=== PATIENT | male | born 1945 | race Caucasian/White ===

== ENCOUNTER 2017-08-20 15:36 | Inpatient (IN) | payer OTHER ==
[~2017-08-20] VITALS: Ht 171.4 cm; Wt 96.3 kg
[~2017-08-20 15:36] MED LIST: ASPIR 8181 MG PO; ATIVAN1 MG PO; AZELASTINE137 MCG/0. INH; CENTRUM SILVER1 EAC3 PO; CITALOPRAM HBR10 MG PO; COZAAR100 MG PO; DICYCLOMINE HCL20 MG PO; FLOMAX0.4 MG PO; KURIC75 GM; LIPITOR20 MG PO; NASACORT AQ16.5 GM INH; OMEPRAZOLE40 MG PO; PROBIOTIC & AC1 EACH PO; TERBINAFINE HC250 MG PO; VALIUM5 MG PO; VENLAFAXINE HCL75 MG PO; [UNRECOGNIZED DRUG - REMARK]
[2017-08-20] MEDS ORDERED: IOPAMIDOL 370 MG/ML 200 ML INFUS..BTL INJ ONE ×2 (16:14→19:54)
[2017-08-20] MEDS ORDERED: SODIUM CHLORIDE 0.9% 50ML 50 ML ONE ×2 (16:14→19:54)
[2017-08-20] MEDS ORDERED: DIATRIZOATE MEGL/DIATRIZOA SOD 30 ML BTL PO ONE (16:14)
[2017-08-20 16:55] LABS: BASOPHILS % 0.1 % (0.0-1.0); HEMATOCRIT 43.9 % (38.2-49.6); HEMOGLOBIN 14.4 g/dL (14.0-18.0); LYMPHOCYTES # (AUTO) 8.3 (1.0-3.2); LYMPHOCYTES % 36.8 % (18.0-39.1); MEAN CORPUSCULAR HGB CONC 32.8 g/dL (31-35); MEAN CORPUSCULAR VOLUME 94.6 fL (81-99); MONOCYTES # (AUTO) 0.7 (0.2-0.8); MONOCYTES % 3.2 % (4.4-11.3); NEUTROPHILS # (AUTO) 13.5 (2.1-6.9); NEUTROPHILS % 59.5 % (38.7-80.0); PLATELET COUNT 319 x10e3/uL (140-360); RED BLOOD COUNT 4.64 x10e6/uL (4.3-5.7); RED CELL DISTRIBUTION WIDTH 13.7 % (11.7-14.4)
[2017-08-20] MEDS ORDERED: MORPHINE SULFATE 2 MG/ML SYR IV STA (16:59)
[2017-08-20] MEDS ORDERED: ONDANSETRON HCL INJ 2 MG/ML VIAL IV STA ×2 (16:59→18:11)
[2017-08-20 17:00] LABS: BILIRUBIN,URINE 1+ (NEGATIVE); CLARITY,URINE SL CLOUDY (CLEAR); COLOR,URINE YELLOW (YELLOW); KETONES,URINE NEGATIVE (NEGATIVE); LEUKOCYTE ESTERASE ,URINE NEGATIVE (NEGATIVE); NITRITE,URINE NEGATIVE (NEGATIVE); PROTEIN,URINE DIPSTICK 1+ (NEGATIVE); URINE UROBILINOGEN 0.2 mg/dL (0.2 - 1)
[2017-08-20 17:09] LABS: EPITHELIAL CELLS,URINE MODERATE /LPF; RBC,URINE 0-5 /HPF (0-5)
[2017-08-20 17:15] LABS: ALANINE AMINOTRANSFERASE 25 IU/L (0-55); ALBUMIN 4.2 g/dL (3.5-5.0); ALBUMIN/GLOBULIN RATIO 1.1 (0.8-2.0); ALKALINE PHOSPHATASE 61 IU/L (40-150); ANION GAP 17.7 mmol/L (8-16); BLOOD UREA NITROGEN 14 mg/dL (7-26); BUN/CREATININE RATIO 16 (6-25); CALCIUM 10.2 mg/dL (8.4-10.2); CARBON DIOXIDE 30 mmol/L (22-29); CHLORIDE 91 mmol/L (98-107); CREATINE KINASE 72 IU/L (30-200); CREATININE, SERUM 0.85 mg/dL (0.72-1.25); EST GLOMERULAR FILTRATION RATE > 60 ML/MIN (60-); GLUCOSE 139 mg/dL (74-118); LIPASE 6 U/L (8-78); POTASSIUM 4.7 mmol/L (3.5-5.1); SODIUM 134 mmol/L (136-145)
[2017-08-20 17:44] LABS: LYMPHOCYTES % (MANUAL) 24 % (19-48); METAMYELOCYTES % (MANUAL) 3 % (0-0); MONOCYTES % (MANUAL) 5 % (3.4-9.0); NEUTROPHILS % (MANUAL) 53 % (40-74); PLATELET ESTIMATE ADEQUATE; PLATELET MORPHOLOGY COMMENT NORMAL; RBC MORPHOLOGY COMMENT NORMAL
[2017-08-20] MEDS ORDERED: HYDROMORPHONE 1MG/1ML INJ IV STA (18:11)
--- NOTE | 2017-08-20 18:29 | Diagnostic Imaging Report ---
PROCEDURE: CT ABDOMEN AND PELVIS WITH CONTRAST TECHNIQUE: The abdomen and pelvis were scanned utilizing a multidetector helical scanner from the diaphragm to the lesser trochanter after the IV administration of 100 cc of Isovue 370 and the oral administration of dilute Gastrografin. Coronal and sagittal multiplanar reformations were obtained. COMPARISON: Patients [facility], CT, CT ABDOMEN AND PELVIS WITH CONTRAST, 02/28/2010, 20:58. INDICATIONS: OBSTRUCTION FINDINGS: LOWER THORAX: Stable 2 mm nodule in the posteromedial left lower lobe (series 2, image 15). Bibasal dependent atelectasis. Subsegmental atelectasis in the lingula. HEPATOBILIARY: No focal hepatic lesions. No biliary ductal dilatation. Gallbladder is unremarkable. SPLEEN: No splenomegaly. PANCREAS: No focal masses or ductal dilatation. ADRENALS: No adrenal nodules. KIDNEYS/URETERS: Subcentimeter hypodensities in the left kidney (series 2, image 50 and 52) which are too small to characterize, but likely represent small cysts. No stones or hydronephrosis. No solid enhancing masses. PELVIC ORGANS/BLADDER: Bladder and prostate are unremarkable. PERITONEUM / RETROPERITONEUM: Trace free fluid in the posterior pelvis (series 2, image 96). LYMPH NODES: No lymphadenopathy. VESSELS: Celiac trunk, superior and inferior mesenteric, and bilateral renal arteries are patent. Portal, superior mesenteric, and splenic veins are patent. GI TRACT: Multiple air and fluid-filled, dilated loops of mid and distal jejunum and proximal and mid ileum (series 2 image 57), with a maximal measurement of approximately 4.4 cm. A transition point is identified in the anterior right mid abdominal peritoneum (series 2, image 43 and coronal image 31), with decompressed distal ileum. There is a fecalization of small bowel loops prior to the transition point (series 2, image 57). No intraluminal masses. The large bowel shows normal caliber. Sigmoid diverticulosis, without diverticulitis. BONES AND SOFT TISSUES: No aggressive lytic lesion. Mild degenerative disc changes in the lower thoracic and lumbosacral spines. Stable small bilateral fat containing inguinal hernias. Soft tissues are otherwise unremarkable. IMPRESSION: 1. Findings consistent with small bowel obstruction, with transition point in the mid to distal ileum. No obstructing mass. Etiology is likely secondary to adhesions. Calin Amador M.D. Dictated by: Calin Amador M.D. on 08/20/2017 at 18:30 Electronically approved by: Calin Amador M.D. on 08/20/2017 at 18:30
[2017-08-20] MEDS ORDERED: ONDANSETRON HCL INJ 2 MG/ML VIAL IV PRN (19:00)
[2017-08-20] MEDS ORDERED: SODIUM CHLORIDE 0.9% 1000ML 1,000 ML ONE (19:10)
[2017-08-20] MEDS ORDERED: BENZOCAINE/TETRACAINE/BUTAMBEN AERO SPRAY 56 GM CAN TOP ONE (19:15)
[2017-08-20] MEDS ORDERED: SODIUM CHLORIDE 0.9% 1000ML 1,000 ML IV ONE (19:15)
[2017-08-20] MEDS ORDERED: METRONIDAZOLE 500MG/NS 100ML 100 ML IV SCH (19:30)
[2017-08-20] MEDS: SODIUM CHLORIDE 0.9% 250ML IRRIG IR SCH ×2 (19:39→23:08)
--- OUTSIDE RECORDS SUMMARY | 2017-08-20 19:42 | XMS REPORT ---
Author Author [facility] Address Unknown Phone Unavailable Care Team Providers Care Hay Chopper Name Role Phone MANE DAVIS Unavailable Unavailable Problems This patient has no known problems. Allergies, Adverse Reactions, Alerts This patient has no known allergies or adverse reactions. Medications This patient has no known medications. Results Test Description Test Time Test Comments Text Results Atomic Results Result Comments CT ABDOMEN/PELVIS W [place] [address] Patient Name: CAROLYNE MARINELLI MR #: [id number] : 1945 Age/Sex: 71/M Req #: [id number] Adm Physician: Ordered by: MANE DAVIS MD Report #: [id number] Location: ER Room/Bed: Procedure: [id number] CT/CT ABDOMEN/PELVIS W Exam Date: 08/20/17 Exam Time: 1745 REPORT STATUS: Signed PROCEDURE: CT ABDOMEN AND PELVIS WITH CONTRAST TECHNIQUE: The abdomen and pelvis were scanned utilizing a multidetector helical scanner from the diaphragm to the lesser trochanter after the IV administration of 100 cc of Isovue 370 and the oral administration of dilute Gastrografin. Coronal and sagittal multiplanar reformations were obtained. COMPARISON: [facility], CT, CT ABDOMEN AND PELVIS WITH CONTRAST, 02/28/2010, 20:58. INDICATIONS: OBSTRUCTION FINDINGS: LOWER THORAX: Stable 2 mm nodule in the posteromedial left lower lobe (series 2, image 15). Bibasal dependent atelectasis. Subsegmental atelectasis in the lingula. HEPATOBILIARY: No focal hepatic lesions. No biliary ductal dilatation. Gallbladder is unremarkable. SPLEEN: No splenomegaly. PANCREAS: No focal masses or ductal dilatation. ADRENALS: No adrenal nodules. KIDNEYS/URETERS: Subcentimeter hypodensities in the left kidney (series 2, image 50 and 52) which are too small to characterize, but likely represent small cysts. No stones or hydronephrosis. No solid enhancing masses. PELVIC ORGANS/BLADDER : Bladder and prostate are unremarkable. PERITONEUM / RETROPERITONEUM: Trace free fluid in the posterior pelvis (series 2, image 96). LYMPH NODES : No lymphadenopathy. VESSELS: Celiac trunk, superior and inferior mesenteric , and bilateral renal arteries are patent. Portal, superior mesenteric, and splenic veins are patent. GI TRACT: Multiple air and fluid-filled, dilated loops of mid and distal jejunum and proximal and mid ileum (series 2 image 57), with a maximal measurement of approximately 4.4 cm. A transition point is identified in the anterior right mid abdominal peritoneum (series 2, image 43 and coronal image 31), with decompressed distal ileum. There is a fecalization of small bowel loops prior to the transition point (series 2, image 57). No intraluminal masses. The large bowel shows normal caliber. Sigmoid diverticulosis, without diverticulitis. BONES AND SOFT TISSUES: No aggressive lytic lesion. Mild degenerative disc changes in the lower thoracic and lumbosacral spines. Stable small bilateral fat containing inguinal hernias. Soft tissues are otherwise unremarkable. IMPRESSION: 1. Findings consistent with small bowel obstruction, with transition point in the mid to distal ileum. No obstructing mass. Etiology is likely secondary to adhesions. Leyla Vicente M.D. Dictated by: Leyla Vicente M.D. on 08/20/2017 at 18:30 Electronically approved by: Leyla Vicente M.D. on 2017 at 18:30 Dictated By: LEYLA VICENTE MD 29 Transcribed By: FILIPE on 1829 COPY TO: MANE DAVIS MD
[2017-08-20 20:00] VITALS: BP 151/85
[2017-08-20] MEDS: SODIUM CHLORIDE 0.9% 1000ML 1,000 ML IV SCH (21:11)
[2017-08-20] MEDS: METRONIDAZOLE 500MG/NS 100ML 100 ML IV SCH (21:11)
[2017-08-20] MEDS: MORPHINE SULFATE 2 MG/ML SYR IV PRN (21:11)
[2017-08-20] MEDS: LEVOFLOXACIN 500MG/D5W 100ML 100 ML IV SCH (21:11)
[2017-08-20 22:21] VITALS: BP 151/85
[2017-08-20 22:22] VITALS: BP 151/85
[2017-08-20 22:40] VITALS: BP 151/85
[2017-08-21] VITALS (7 sets, daily range): BP systolic 118–173; BP diastolic 56–84
[2017-08-21] MEDS: SODIUM CHLORIDE 0.9% 1000ML 1,000 ML IV SCH ×2 (03:01→11:49)
[2017-08-21] MEDS: MORPHINE SULFATE 2 MG/ML SYR IV PRN ×3 (03:25→18:05)
[2017-08-21] MEDS: METRONIDAZOLE 500MG/NS 100ML 100 ML IV SCH ×3 (03:36→19:58)
[2017-08-21] MEDS: SODIUM CHLORIDE 0.9% 250ML IRRIG IR SCH ×6 (03:36→23:00)
--- NOTE | 2017-08-21 08:33 | Consultation ---
DATE OF CONSULTATION: August 21, 2017 CHIEF COMPLAINT: Abdominal pain. HISTORY OF PRESENT ILLNESS: The patient is a 71-year-old male with 2-day history of mid abdominal pain and progressive distention of the abdomen with nausea, but no vomiting. He denies having fever or chills. He has had no bowel movements for 2 days. No prior episode. PAST MEDICAL HISTORY: Significant for CLL and hypertension. SURGICAL HISTORY: Negative. ALLERGIES: HE HAS NO DRUGS ALLERGY. SOCIAL HABITS: He does not smoke or drink alcohol. REVIEW OF SYSTEMS: No chest pain, shortness of breath, or cough recently. PHYSICAL EXAMINATION: VITAL SIGNS: Stable, afebrile. GENERAL: He is awake, alert, in no apparent distress. HEENT: Sclerae nonicteric. NECK: Supple. LUNGS: Clear. HEART: Regular rate and rhythm. ABDOMEN: Moderately distended, but compressible. No focal tenderness. No inguinal hernia. EXTREMITIES: Without cyanosis or edema. LABORATORY DATA: White cell count 22,000, hemoglobin of 14. Creatinine 0.8. CT of the abdomen showed abdominal distention from small-bowel obstruction with transition point in distal ileum. No mass noted. ASSESSMENT: Obstruction of the small intestine. Currently decompressed with nasogastric tube. PLAN: Monitor closely. Will give the NG tube sometime to take effect. If obstruction persistent, may need laparoscopic lysis of adhesions. Thank you for consultation. Job#: [id number]
[2017-08-21] MEDS: LEVOFLOXACIN 500MG/D5W 100ML 100 ML IV SCH (09:22)
[2017-08-21] MEDS ORDERED: PANTOPRAZOLE 40 MG 10ML VIAL IV ONE (16:24)
--- NOTE | 2017-08-21 16:48 | Diagnostic Imaging Report ---
PROCEDURE:X-RAY ABDOMEN - KUB COMPARISON:[facility], CT, CT ABDOMEN/PELVIS W, 08/20/2017, 17:48. INDICATIONS:SMALL BOWEL OBSTRUCTION FINDINGS: Interval placement of enteric tube, which has its distal tip projecting in the proximal fundus and side-port likely at the level of the GE junction. Several loops of moderately dilated air-filled small bowel are again noted in the left and mid abdomen. No abnormal calcifications. Contrast is noted in the bladder. No acute bony abnormalities. Patchy airspace opacities in the left lower lung, which may represent atelectasis or pneumonia. CONCLUSION: Several loops of moderately dilated, air-filled small bowel are again seen in the left and mid abdomen, consistent with known small bowel obstruction. Interval placement of enteric tube, with side-port likely at the level of the GE junction. Further advancement is recommended. Findings in the left lower lung may represent atelectasis or pneumonia. Calin Amador M.D. Dictated by: Calin Amador M.D. on 08/21/2017 at 16:49 Electronically approved by: Calin Amador M.D. on 08/21/2017 at 16:49
--- NOTE | 2017-08-21 17:07 | History and Physical ---
PCP: Dr. Doug Dobbins CHIEF COMPLAINT: Small bowel obstruction, nausea and vomiting, abdominal distention. HISTORY: A 71-year-old male with history of CLL, diabetes, and hypertension came in with abdominal distention and pain for the past few days. Patient started out with a little pain but then increased in side. The patient is stable. NG tube placement was done. Patient is doing much better. Abdominal distention has now resolved and he is feeling much better. Nausea and vomiting improving. PAST MEDICAL HISTORY: Diabetes type 2, hypertension, hyperlipidemia, CLL, anxiety disorder and enlarged prostate. PAST SURGICAL HISTORY: Noncontributory. SOCIAL HISTORY: Patient does not smoke or use alcohol. No recreational drug use. ALLERGIES: NO KNOWN ALLERGY. MEDICATIONS 1. Aspirin. 2. Lipitor. 3. Nasal spray. 4. Celexa. 5. Bentyl. 6. Lorazepam. 7. Losartan. 8. Multivitamin. 9. Omeprazole. 10. Flomax. PHYSICAL EXAMINATION VITAL SIGNS: Temperature is 98. Blood pressure 133/79. Pulse rate 92. Respirations 18. GENERAL: Patient is not in acute distress. Is awake. HEENT: Normocephalic, atraumatic, anicteric. NG tube in place. PULMONARY: Clear. CARDIOVASCULAR: Regular rate and rhythm. ABDOMEN: Soft with decreased bowel sounds. NG tube in the stomach. Nondistended, some tenderness. EXTREMITIES: No cyanosis or edema. NEUROLOGIC: There is no gross focal deficit. CT abdomen and pelvis shows small bowel obstruction, transitional point in the mid and distal ileum. No obstructive mass. IMPRESSION 1. Small bowel obstruction. 2. Abdominal pain, nausea and vomiting. 3. Baseline chronic lymphocytic leukemia and multiple other problems. PLAN: Repeat KUB. Comfort medication. NG tube on low section. Home medications, change to IV given to the patient to control blood pressure if needed. IV Ativan as needed. The patient is stable. Continue with current management. Job#: [id number] SIM
[2017-08-21] MEDS ORDERED: LORAZEPAM INJ 2 MG/ML VIAL IV ONE (21:00)
[2017-08-22] VITALS (7 sets, daily range): BP systolic 131–191; BP diastolic 78–93
[2017-08-22] MEDS: SODIUM CHLORIDE 0.9% 250ML IRRIG IR SCH ×5 (03:00→20:59)
[2017-08-22] MEDS: SODIUM CHLORIDE 0.9% 1000ML 1,000 ML IV SCH ×2 (03:08→09:42)
[2017-08-22] MEDS: METRONIDAZOLE 500MG/NS 100ML 100 ML IV SCH ×3 (03:12→21:01)
[2017-08-22] MEDS: PANTOPRAZOLE 40 MG 10ML VIAL IV SCH (05:29)
--- NOTE | 2017-08-22 06:57 | Diagnostic Imaging Report ---
ABDOMEN-1VIEW (KUB) Clinical history: Small bowel obstruction Technique: AP view abdomen Comparison: None Findings: Limited by portable technique and motion artifact. Distended small bowel over the central abdomen. Gas is seen in the colon with high density or contrast in the right colon. Limited supine evaluation for free air with hemidiaphragms excluded Impression: Limited study with focal dilated small bowel loops over the central abdomen. This could reflect resolving, partial or early obstruction. Signed by: Dr Consuelo Vidales MD on 08/22/2017 6:54 AM
[2017-08-22 07:36] LABS: BASOPHILS % 0.2 % (0.0-1.0); EOSINOPHILS # (AUTO) 0.1 (0.0-0.4); EOSINOPHILS % 0.5 % (0.0-6.0); HEMATOCRIT 39.4 % (38.2-49.6); HEMOGLOBIN 12.5 g/dL (14.0-18.0); LYMPHOCYTES # (AUTO) 6.4 (1.0-3.2); LYMPHOCYTES % 55.4 % (18.0-39.1); MEAN CORPUSCULAR HEMOGLOBIN 31.5 pg (28-32); MEAN CORPUSCULAR HGB CONC 31.7 g/dL (31-35); MEAN CORPUSCULAR VOLUME 99.2 fL (81-99); MONOCYTES # (AUTO) 0.6 (0.2-0.8); MONOCYTES % 5.5 % (4.4-11.3); NEUTROPHILS # (AUTO) 4.4 (2.1-6.9); NEUTROPHILS % 38.2 % (38.7-80.0); PLATELET COUNT 259 x10e3/uL (140-360); RED BLOOD COUNT 3.97 x10e6/uL (4.3-5.7); RED CELL DISTRIBUTION WIDTH 13.9 % (11.7-14.4)
[2017-08-22 07:57] LABS: ANION GAP 14.1 mmol/L (8-16); BLOOD UREA NITROGEN 8 mg/dL (7-26); BUN/CREATININE RATIO 11 (6-25); CALCIUM 8.8 mg/dL (8.4-10.2); CARBON DIOXIDE 30 mmol/L (22-29); CHLORIDE 99 mmol/L (98-107); CREATININE, SERUM 0.74 mg/dL (0.72-1.25); EST GLOMERULAR FILTRATION RATE > 60 ML/MIN (60-); GLUCOSE 104 mg/dL (74-118); POTASSIUM 4.1 mmol/L (3.5-5.1); SODIUM 139 mmol/L (136-145)
[2017-08-22] MEDS: HYDRALAZINE HCL 20 MG/ML VIAL IV PRN ×2 (08:15→08:49)
[2017-08-22 08:31] LABS: FOLATE 17.8 ng/mL (7.0-15.4)
[2017-08-22] MEDS: LEVOFLOXACIN 500MG/D5W 100ML 100 ML IV SCH (08:48)
[2017-08-22 10:58] LABS: LYMPHOCYTES % (MANUAL) 42 % (19-48); MONOCYTES % (MANUAL) 7 % (3.4-9.0); NEUTROPHILS % (MANUAL) 46 % (40-74); PLATELET ESTIMATE ADEQUATE; PLATELET MORPHOLOGY COMMENT NORMAL; RBC MORPHOLOGY COMMENT NORMAL; SMUDGE CELLS MODERATE
[2017-08-22] MEDS: LORAZEPAM INJ 2 MG/ML VIAL IV PRN ×2 (13:28→20:15)
[2017-08-22] MEDS: ENALAPRILAT IV INJ 1.25 MG/ML VIAL IV SCH (17:33)
[2017-08-22] MEDS: MORPHINE SULFATE 2 MG/ML SYR IV PRN (20:30)
[2017-08-22] MEDS: SODIUM CHLORIDE 0.45% 1,000 ML IV SCH (21:01)
[2017-08-23] VITALS (10 sets, daily range): BP systolic 133–220; BP diastolic 63–110
[2017-08-23] MEDS: SODIUM CHLORIDE 0.9% 250ML IRRIG IR SCH ×6 (00:15→18:25)
[2017-08-23] MEDS: ENALAPRILAT IV INJ 1.25 MG/ML VIAL IV SCH ×2 (00:30→06:27)
[2017-08-23] MEDS: SODIUM CHLORIDE 0.45% 1,000 ML IV SCH (03:05)
[2017-08-23] MEDS: METRONIDAZOLE 500MG/NS 100ML 100 ML IV SCH ×3 (03:14→22:39)
[2017-08-23] MEDS: PANTOPRAZOLE 40 MG 10ML VIAL IV SCH (06:26)
--- NOTE | 2017-08-23 06:27 | Diagnostic Imaging Report ---
ABDOMEN-1VIEW (KUB) Clinical history: \S\SBO \[id number] \S\[id number] Technique: AP view abdomen Comparison: Previous day Findings: Right hemidiaphragm is excluded from view. NG tube terminates over the very proximal stomach, which may have been present on prior though obscured by motion. No dilated loops of small or large bowel. Contrast from recent CT is seen in the right colon. Impression: No radiographic evidence of small bowel obstruction. Signed by: Dr Consuelo Vidales MD on 08/23/2017 6:24 AM
[2017-08-23] MEDS: HYDRALAZINE HCL 20 MG/ML VIAL IV PRN (07:51)
[2017-08-23 08:18] LABS: ANION GAP 15.4 mmol/L (8-16); BLOOD UREA NITROGEN 6 mg/dL (7-26); BUN/CREATININE RATIO 9 (6-25); CALCIUM 8.9 mg/dL (8.4-10.2); CARBON DIOXIDE 27 mmol/L (22-29); CHLORIDE 97 mmol/L (98-107); CREATININE, SERUM 0.68 mg/dL (0.72-1.25); EST GLOMERULAR FILTRATION RATE > 60 ML/MIN (60-); GLUCOSE 101 mg/dL (74-118); POTASSIUM 3.4 mmol/L (3.5-5.1); SODIUM 136 mmol/L (136-145)
[2017-08-23 08:43] LABS: CREATINE KINASE 102 IU/L (30-200)
[2017-08-23] MEDS: LEVOFLOXACIN 500MG/D5W 100ML 100 ML IV SCH (09:00)
[2017-08-23] MEDS: LORAZEPAM INJ 2 MG/ML VIAL IV PRN (09:02)
[2017-08-23] MEDS ORDERED: CLONIDINE HCL 0.3MG/24 HR PATCH TOP SCH (11:00)
[2017-08-23] MEDS ORDERED: ENALAPRILAT IV INJ 1.25 MG/ML VIAL IV PRN (11:45)
[2017-08-23] MEDS ORDERED: LORAZEPAM 0.5 MG TAB PO PRN (11:45)
[2017-08-23] MEDS: NIFEDIPINE CR 30 MG TAB PO SCH (11:45)
[2017-08-23] MEDS: SENNA-S TABLET PO SCH ×2 (11:45→17:00)
[2017-08-23] MEDS: CYANOCOBALAMIN INJ 1,000 MCG/ML VIAL IM SCH (14:21)
[2017-08-23] MEDS: LOSARTAN POTASSIUM 100 MG TAB PO SCH (14:21)
[2017-08-23] MEDS ORDERED: TAMSULOSIN HCL 0.4 MG CAP PO SCH (21:00)
[2017-08-23] MEDS ORDERED: ATORVASTATIN 20 MG TAB PO SCH (21:00)
[2017-08-24 03:45] VITALS: BP 108/58
[2017-08-24] MEDS: METRONIDAZOLE 500MG/NS 100ML 100 ML IV SCH ×2 (04:03→12:00)
[2017-08-24 06:20] VITALS: BP 108/58
[2017-08-24] MEDS: PANTOPRAZOLE 40 MG 10ML VIAL IV SCH (06:31)
[2017-08-24] MEDS ORDERED: PANTOPRAZOLE SOD 40 MG TABEC PO SCH (07:30)
[2017-08-24 08:00] VITALS: BP 138/58
[2017-08-24 08:04] VITALS: BP 138/58
[2017-08-24] MEDS ORDERED: LACTOBACILLUS ACIDOPHILUS CAPSULE PO SCH (09:00)
[2017-08-24] MEDS: NIFEDIPINE CR 30 MG TAB PO SCH (09:00)
[2017-08-24] MEDS ORDERED: ASPIRIN 81 MG CHEW TAB PO SCH (09:00)
[2017-08-24] MEDS: LEVOFLOXACIN 500MG/D5W 100ML 100 ML IV SCH (09:00)
[2017-08-24] MEDS: LOSARTAN POTASSIUM 100 MG TAB PO SCH (09:00)
[2017-08-24] MEDS ORDERED: CITALOPRAM HYDROBROMIDE 20 MG TAB PO SCH (09:00)
[2017-08-24] MEDS: SENNA-S TABLET PO SCH (09:00)
[2017-08-24] MEDS: CYANOCOBALAMIN INJ 1,000 MCG/ML VIAL IM SCH (09:00)
--- NOTE | 2017-08-24 09:48 | Discharge Summary ---
PCP: Dr. Doug Dobbins FINAL DIAGNOSES 1. Small-bowel obstruction, resolved with nasogastric tube. 2. B12 deficiency. 3. Constipation. SUMMARY: This 71-year-old male came in with small-bowel obstruction. Patient is stable. NG tube was placed. This is his first small-bowel obstruction. The patient is stable. He is comfortable. The small-bowel obstruction has now resolved. Patient will go home. His B12 level was low. B12 injection was given. The patient will go home with sublingual B12. Stool softener given. Resume home medications. The patient is stable for discharge home today. Job#: [id number]
[2017-08-24 11:26] VITALS: BP 147/73
[2017-08-24] MEDS ORDERED: SENNA LAXATIVE1 EACH PO (13:04)
[2017-08-24] MEDS ORDERED: MIRALAX17 GM PO (13:05)
[2017-08-24] MEDS ORDERED: B12 SL (13:06)
== END 2017-08-24 13:15 | disposition home or self-care (01) | DRG 390 ==
LOC: ER 15:36 → ERHOLD 19:39 → MED/SURG3 20:06
PROVIDERS: ADMIT Internal Medicine; ATTEND Internal Medicine
DX: K56.609 Unspecified intestinal obstruction, unspecified as to partial versus complete obstruction (principal); E11.9 Type 2 diabetes mellitus without complications; E53.8 Deficiency of other specified B group vitamins; I10 Essential (primary) hypertension; Z85.6 Personal history of leukemia; E78.5 Hyperlipidemia, unspecified
CPT/HCPCS: 36415; 74018; 74177; 80048; 80053; 81001; 82550; 82553; 82607; 82746; 83605; 83690; 84443; 84484; 85025; 87040; 93005; 96361; 96366; 99284; J0360; J1170; J1956; J2060; J2270; J2405; J3420; J7030; Q9967